=== PATIENT | female | born 1990 | race Caucasian/White ===

== ENCOUNTER 2018-10-25 05:32 | Day surgery (SDC) | payer OTHER ==
[2018-10-25] MEDS ORDERED: PHENAZOPYRIDINE HCL 200 MG TAB PO ONE (05:48)
[2018-10-25] MEDS ORDERED: ACETAMINOPHEN 500 MG TAB PO ONE (05:48)
[2018-10-25] MEDS ORDERED: ceFAZolin 2 GM/DEXTROSE 100 ML IV ONE (05:48)
[2018-10-25] MEDS ORDERED: GABAPENTIN 300 MG CAP PO ONE (05:48)
[2018-10-25] MEDS ORDERED: LR 1,000 ML IV ONE (05:50)
[2018-10-25] MEDS ORDERED: MIDAZOLAM 2 MG/2 ML VIAL IVP ONE (07:01)
--- NOTE | 2018-10-25 07:01 | PDANEPAE ---
ANE History of Present Illness endometriosis, here for robotic ablation ANE Past Medical History - Cardiovascular History Hx Hypertension: No Hx Arrhythmias: No Hx Chest Pain: No Hx Coronary Artery / Peripheral Vascular Disease: No Hx CHF / Valvular Disease: No Hx Palpitations: No - Pulmonary History Hx COPD: No Hx Asthma/Reactive Airway Disease: No Hx Recent Upper Respiratory Infection: No Hx Oxygen in Use at Home: No Hx Sleep Apnea: No Sleep Apnea Screening Result - Last Documented: Negative - Neurologic History Hx Cerebrovascular Accident: No Hx Seizures: No Hx Dementia: No - Endocrine History Hx Diabetes: No - Renal History Hx Renal Disorders: No - Liver History Hx Hepatic Disorders: No - Neurological & Psychiatric Hx Hx Neurological and Psychiatric Disorders: No - Cancer History Hx Cancer: No - Congenital Disorder History Hx Congenital Disorders: No - GI History Hx Gastrointestinal Disorders: No - Other Health History Other Health History: NEG - Chronic Pain History Chronic Pain: Yes (LT ABDOMEN) - Surgical History Prior Surgeries: NONE ANE Review of Systems Review of Systems: - Exercise capacity METS (RN): 3 METS ANE Patient History - Allergies Allergies/Adverse Reactions: No Known Allergies Allergy (Unverified 10/13/18 15:09) - Home Medications Home Medications: NK [No Known Home Meds] 10/13/18 [Last Taken Unknown] - NPO status NPO Since - Liquids (Date): 10/24/18 NPO Since - Liquids (Time): 22:00 NPO Since - Solids (Date): 10/24/18 NPO Since - Solids (Time): 22:00 - Smoking Hx Smoking Status: Former smoker - Family Anes Hx Family Hx Anesthesia Complications: NEG ANE Labs/Vital Signs - Vital Signs Blood Pressure: 100/70 Heart Rate: 73 Respiratory Rate: 17 O2 Sat (%): 98 Height: 147.32 cm Weight: 54.431 kg ANE Physical Exam - Airway Neck exam: FROM Mallampati Score: Class 2 Mouth exam: normal dental/mouth exam - Pulmonary Pulmonary: no respiratory distress, no rales or rhonchi - Cardiovascular Cardiovascular: regular rate and rhythym, no murmur, rub, or gallop - ASA Status ASA Status: II ANE Anesthesia Plan Anesthesia Plan: general endotracheal anesthesia Total IV Anesthesia: No
[2018-10-25] MEDS ORDERED: MIDAZOLAM 2 MG/2 ML VIAL ONE (07:02)
--- NOTE | 2018-10-25 07:04 | PDHPUP ---
History & Physical Update H&P update statement: This history and physical update is based on an assessment of the patient which was completed after admission or registration (within 24 hours), but prior to the surgery/procedure. H&P update: H&P reviewed & patient examined, no change in patient's condition since H&P completed
[2018-10-25] MEDS ORDERED: BUPIVACAINE/EPI 0.5% 30 ML SDV ONE (07:07)
[2018-10-25] MEDS ORDERED: LIDOCAINE 2% 100 MG/5 ML SYR ONE (07:14)
[2018-10-25] MEDS ORDERED: fentaNYL 100 MCG/2 ML INJ ONE ×2 (07:14→09:52)
[2018-10-25] MEDS ORDERED: PROPOFOL 200 MG/20 ML VIAL ONE (07:14)
[2018-10-25] MEDS ORDERED: ONDANSETRON 4 MG/2 ML VIAL ONE (07:41)
[2018-10-25] MEDS ORDERED: GLYCOPYRROLATE 0.2 MG/1 ML VIAL ONE (07:41)
[2018-10-25] MEDS ORDERED: DEXAMETHASONE 4 MG/ML VIAL ONE (07:41)
[2018-10-25] MEDS ORDERED: KETOROLAC 30 MG/1 ML SDV ONE (07:41)
[2018-10-25] MEDS ORDERED: NEOSTIGMINE METHYLSULFATE 5 MG/5 ML SYR ONE (07:41)
[2018-10-25] MEDS ORDERED: HYDROmorphONE/DILAUDID 2 MG/ML INJ ONE (08:25)
[2018-10-25] MEDS ORDERED: DIAZEPAM 5 MG/ML 1 ML SYR IVP PRN (09:03)
[2018-10-25] MEDS ORDERED: NALOXONE HCL 0.4 MG/ML INJ IVP PRN (09:03)
[2018-10-25] MEDS ORDERED: fentaNYL 100 MCG/2 ML INJ IVP PRN (09:03)
[2018-10-25] MEDS ORDERED: MEPERIDINE 25 MG/0.5 ML AMP IVP PRN (09:03)
[2018-10-25] MEDS ORDERED: LR 500 ML IV PRN (09:03)
[2018-10-25] MEDS ORDERED: oxyCODONE IR 5 MG TAB PO PRN (09:03)
[2018-10-25] MEDS ORDERED: PROMETHAZINE HCL 25 MG/ML INJ IVP PRN (09:03)
--- NOTE | 2018-10-25 09:16 | POSTOPPROG ---
Post Op Note Date of Operation: 10/25/18 Surgeon: Shravan Fine Chucking And Boring Machine Operator: Analy Aguilar Anesthesia: GET(General Endotracheal) Pre-op Diagnosis: Dysmenorrhea, endometriosis Post-op Diagnosis: Same Procedure: Robotic excision of endo, bilat ureterolysis, cysto Findings: Endo, no bladder injury Inf/Abcess present in the surg proc area at time of surgery?: No EBL: Minimal Complications: None
--- NOTE | 2018-10-25 09:30 | POSTANESTH ---
Post Anesthetic Evaluation Cardiovascular Status: Normal, Stable Respiratory Status: Normal, Stable Level of Consciousness/Mental Status: Can Participate in Eval, Moderately Sleepy Pain Control: Adequate, Prn Tx Ordered Nausea/Vomiting Control: Adequate, Prn Tx Ordered Complications Possibly Related to Anesthesia: None Noted
[2018-10-25] MEDS ORDERED: HYDROmorphONE/DILAUDID 1 MG/ML INJ ONE (09:34)
[2018-10-25] MEDS: HYDROmorphONE/DILAUDID 1 MG/ML INJ IVP PRN ×2 (09:37→09:50)
[2018-10-25 11:34] VITALS: BP 85/47
--- NOTE | 2018-10-25 12:25 | GOP ---
[f rep st] OPERATIVE REPORT DATE OF OPERATION: 10/25/2018 SURGEON: Shravan Fine MD CLIENT SUPPORT ANALYST: Analy Aguilar CFA. ANESTHESIA: General. PREOPERATIVE DIAGNOSIS: 1. Dysmenorrhea. 2. Endometriosis. 3. Midcycle pain. 4. Dyschezia. 5. Urinary frequency and urgency. POSTOPERATIVE DIAGNOSIS: 1. Dysmenorrhea. 2. Endometriosis. 3. Midcycle pain. 4. Dyschezia. 5. Urinary frequency and urgency. PROCEDURE PERFORMED: 1. Robotic excision of endometriosis in anterior and posterior cul-de-sac, bilateral pelvic side wal ls. 2. Excision of sigmoid lesions. 3. Excision of rectal lesions. 4. Bilateral ureterolysis. 5. Bilateral ovariopexy. 6. Cystoscopy. FINDINGS: SPECIMENS: 1. Pelvic peritoneum with endometriosis. 2. Sigmoid lesion. 1. Rectal lesion. 3. ESTIMATED BLOOD LOSS: Scant. DESCRIPTION OF PROCEDURE: The patient was taken to the operating room where she was identified. Gen eral anesthesia was administered and found to be adequate. She was placed in the lithotomy position and prepared and draped in normal sterile fashion. A [place] catheter was placed in her bladder. A [place] tenaculum was placed in the uterus for manipulation. An 8 mm infraumbilical incision was made with a scalpel. The Veress needle with CO2 gas flowing was advanced into the peritoneal cavity. The abdomen was then insufflated with carbon dioxide gas. The 8 mm trocar, followed by the laparoscope, were then inserted. Two lateral ports were placed in the r ight, one on the left under direct visualization. Findings: The upper abdomen was unremarkable. There was no evidence of endometriosis on either diap hragm, liver, gallbladder, stomach, or upper abdominal bowel. Within the pelvis, she had endometrios is in both the anterior and posterior cul-de-sac, both pelvic sidewalls, as well as lesions on the si gmoid and rectum. She did have several lesions on the ovaries. The entire anterior cul-de-sac peritoneum was completely excised. The lesions on the sigmoid and rec elli were then excised with the robotic scissors. They extended into the muscularis. The rectal lesi on was deeper, requiring over-sewing with 3-0 Vicryl suture. The entire posterior cul-de-sac periton eum from the distal rectum up to the cervix and laterally to the uterosacral ligaments was then excis ed. She required a bilateral ureterolysis, given the endometriosis overlying both ureters. The sol toneum over the pelvic brims was incised. The ureters were gently dissected free and lateralized off the overlying peritoneum and endometriosis from the pelvic brim down to the uterine artery. Once th is was accomplished, the entire pelvic sidewall peritoneum was completely excised. Given the patient 's midcycle pain and risk of worsening pain, given the exposed retroperitoneum bilaterally, she requi red a bilateral ovariopexy. Each ovary was attached to the ipsilateral round ligaments near the inte rnal inguinal ring with 3-0 Vicryl Rapide suture. The pelvis was irrigated with sterile saline, and hemostasis was present. Three sheets of Interceed were placed within the pelvis, one in the anterior cul-de-sac. The other 2 on each adnexa extending into the posterior cul-de-sac. The robot was then undocked. The skin was closed with 4-0 Monocryl. Cystoscopy was then performed. Both ureters had vigorous jets of urine. There was no evidence of bl adder nor urethral injury seen. There was no obvious pathology seen to explain the urgency and frequ ency other than the peritoneal endometriosis overlying the bladder. Anesthesia was reversed. The africa moore taken the PACU awake, in stable condition. COMPLICATIONS: None. DISPOSITION: Patient stable to PACU. /[id number]/MODL
--- NOTE | 2018-10-25 18:29 | CPEKG ---
Test Reason : SOB Blood Pressure : / mmHG Vent. Rate : 065 BPM Atrial Rate : 063 BPM P-R Int : 114 ms QRS Dur : 081 ms QT Int : 377 ms P-R-T Axes : 037 068 016 degrees QTc Int : 392 ms Sinus rhythm Anterior T abnl Confirmed by Krupa Novak ([id number]) on 10/25/2018 6:28:46 PM Referred By: Shravan Fine Confirmed By:Krupa Novak
== END 2018-10-25 12:25 | disposition home or self-care (01) ==
LOC: FSGY 05:32
PROVIDERS: ATTEND Obstetrics & Gynecology
DX: N80.3 Endometriosis of pelvic peritoneum (principal); N80.5 Endometriosis of intestine; N94.6 Dysmenorrhea, unspecified
CPT/HCPCS: 58662; 93005; C1765; J0690; J1100; J1170; J1885; J2001; J2250; J2405; J2704; J2710; J3010